=== PATIENT | male | born 1985 | race Two or more races ===

== ENCOUNTER 2019-01-19 09:14 | Inpatient (IN) | payer SELFPAY ==
[~2019-01-19] VITALS: Ht 165.1 cm; Wt 64.9 kg
[2019-01-19 09:15] VITALS: BP 128/89
--- NOTE | 2019-01-19 09:25 | Emergency Room Report ---
History of Present Illness General Chief Complaint: Abdominal Pain Source: Patient, EMS Present Illness HPI 33yo M with h/o appendectomy p/w epigastric pain after drinking alcohol, reports vomiting food and gastric contents, but denies coffee grounds or vomiting blood. He reports this pain has been going on for a very long time. He denies urinary complaints, diarrhea, rectal bleeding or dark stools. He also denies alleviating or exacerbating factors. Allergies: Coded Allergies: No Known Allergies (Unverified , 01/19/19) Patient History Past Medical History: see triage record Social History: Reports: alcohol use Reviewed Nursing Documentation: PMH: Agreed; PSxH: Agreed Nursing Documentation-PMH Past Medical History: No History, Except For Review of Systems All Other Systems: negative except mentioned in HPI Physical Exam Vital Signs Date Time Temp Pulse Resp B/P (MAP) Pulse Ox O2 Delivery O2 Flow Rate FiO2 01/19/19 09:11 97.7 74 16 139/79 99 Room Air Sp02 EP Interpretation: reviewed, normal General Appearance: no apparent distress - smells of EtOH but doesn't appear visibly intoxicated, alert, non-toxic Head: normocephalic Eyes: bilateral eye normal inspection, bilateral eye PERRL, bilateral eye EOMI ENT: normal ENT inspection, hearing grossly normal, normal pharynx, no angioedema, normal voice, moist mucus membranes Neck: normal inspection, full range of motion, supple, supple/symm/no masses Respiratory: chest non-tender, lungs clear, normal breath sounds, no rhonchi, no respiratory distress, no retraction, no accessory muscle use, no wheezing, chest symmetrical, palpation of chest normal Cardiovascular #1: normal peripheral pulses, regular rate, rhythm, no edema, no gallop, no JVD, no murmur, no rub Cardiovascular #2: 2+ radial (R), 2+ radial (L) Gastrointestinal: normal inspection, non tender, soft, no mass, no guarding, no rebound Rectal: deferred Genitourinary: normal inspection, no CVA tenderness Musculoskeletal: back normal, gait/station normal, normal range of motion, non- tender, no calf tenderness Neurologic: alert, responsive, 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 Clay, has assessed and agrees that patient is medically stable for discharge to an outpatient disposition. Diagnostic Impression: Primary Impression: Alcohol abuse Additional Impression: Pancreatitis, alcoholic, acute ER Course Patient fairly well-appearing, soft, nontender abdominal exam. Symptoms consistent with EtOH induced pancreatitis, with elevated LFT's, lipase, but normal EtOH, although per history patient was drinking prior to symptoms starting last night. He was given IVF 3L NSS, IV analgesics, will be admitted to Med Surgery. Rhythm Strip Diag. Results Rhythm Strip Time: 09:24 EP Interpretation: yes Rate: 68 Rhythm: NSR, no PVC's, no ectopy Last Vital Signs Date Time Temp Pulse Resp B/P (MAP) Pulse Ox O2 Delivery O2 Flow Rate FiO2 01/19/19 09:11 97.7 74 16 139/79 99 Room Air Disposition: ADMITTED INPATIENT Condition: Stable IDALIA CLAY M.D Jan 19, 2019 09:25
[2019-01-19 09:55] LABS: BASOPHILS % (AUTO) 1.5 % (0.0-2.0); EOSINOPHILS % (AUTO) 6.7 % (0.0-3.0); HEMATOCRIT 48.4 % (42.0-52.0); HEMOGLOBIN 16.5 G/DL (14.2-18.0); MEAN CORPUSCULAR VOLUME 93 FL (80-99); MONOCYTES % (AUTO) 4.9 % (1.0-10.0); NEUTROPHILS % (AUTO) 69.9 % (45.0-75.0); PLATELET COUNT 221 K/UL (150-450); RED BLOOD COUNT 5.21 M/UL (4.70-6.10); RED CELL DISTRIBUTION WIDTH 11.9 % (11.6-14.8); WHITE BLOOD COUNT 5.3 K/UL (4.8-10.8)
[2019-01-19 09:56] LABS: APPEARANCE,URINE CLEAR; BILIRUBIN, URINE 1+ (NEGATIVE); GLUCOSE, URINE (UA) NEGATIVE (NEGATIVE); KETONES,URINE NEGATIVE (NEGATIVE); LEUKOCYTE ESTERASE ,URINE 1+ (NEGATIVE); NITRITE,URINE NEGATIVE (NEGATIVE); PH,URINE 8 (4.5-8.0); PROTEIN,URINE 2+ (NEGATIVE); UROBILINOGEN,URINE 4 MG/DL (0.0-1.0)
[2019-01-19 10:06] LABS: COLOR,URINE YELLOW
[2019-01-19 10:15] LABS: ANION GAP 9 mmol/L (5-15); BLOOD UREA NITROGEN 7 mg/dL (7-18); CALCIUM 8.8 MG/DL (8.5-10.1); CARBON DIOXIDE 26 MMOL/L (21-32); CHLORIDE 100 MMOL/L (98-107); CREATININE 0.7 MG/DL (0.55-1.30); POTASSIUM 3.7 MMOL/L (3.5-5.1); SODIUM 135 MMOL/L (136-145)
[2019-01-19 10:25] LABS: ALANINE AMINOTRANSFERASE 311 U/L (12-78); ALBUMIN 3.9 G/DL (3.4-5.0); ALKALINE PHOSPHATASE 148 U/L (46-116); ASPARTATE AMINO TRANSFERASE 293 U/L (15-37); BILIRUBIN,DIRECT 0.8 MG/DL (0.0-0.3); BILIRUBIN,TOTAL 1.7 MG/DL (0.2-1.0)
[2019-01-19 10:39] VITALS: BP 132/86
[2019-01-19] MEDS ORDERED: Morphine Sulfate 4mg/ml Inj (IV USE ONLY) IVP ONE (11:30)
[2019-01-19 12:33] VITALS: BP 125/76
--- NOTE | 2019-01-19 13:33 | Diagnostic Imaging Report ---
Indication: Abdominal pain Technique: Beckwith-scale and duplex images of the upper abdomen were obtained Comparison: none Findings: Gallbladder is unremarkable, without stones, wall thickening, nor pericholecystic fluid. Sonographic Noguera's sign is negative. Common bile duct measures 2 mm in diameter. No intrahepatic biliary ductal dilatation. Liver demonstrates diffusely increased echogenicity, consistent with diffuse hepatocellular disease, most likely fatty change no focal abnormality. It is somewhat enlarged. Portal vein and hepatic veins are patent. Pancreas is unremarkable. Spleen is unremarkable. Left kidney measures 11.2 cm in length. Right kidney measures 10 point cm length. Both kidneys demonstrate normal echogenicity. There is no hydronephrosis. Echogenic focus is seen in the midportion of the left kidney, measuring 5 mm diameter . Abdominal aorta is partially obscured by bowel gas, visualized portions are non-aneurysmal . Impression: Somewhat enlarged liver. Increased echogenicity is consistent with hepatocellular disease, likely fatty change Negative for gallstones or dilated bile ducts Possible nonobstructive left renal interpolar region calyceal calculus Note incomplete visualization of portions of the abdominal aorta
[2019-01-19] MEDS: D5 1/2NS 1,000 ML IV SCH ×2 (13:40→20:48)
[2019-01-19] MEDS ORDERED: Metoclopramide 10mg/2ml Inj IVP PRN (13:45)
[2019-01-19] MEDS ORDERED: Miralax 17gm pkt ORAL PRN (13:45)
[2019-01-19] MEDS ORDERED: Promethazine HCl 25 MG in NS 55 ML IV PRN (13:45)
[2019-01-19] MEDS ORDERED: Nitroglycerin Subl 0.4mg tab SL PRN (13:45)
[2019-01-19] MEDS ORDERED: LORazepam Inj 2mg/ml 1ml IV PRN (13:45)
[2019-01-19] MEDS ORDERED: Promethazine HCl 12.5 MG in NS 55 ML IV PRN (13:45)
[2019-01-19] MEDS ORDERED: Morphine Sulfate 2mg/ml Inj(IV/IM USE ONLY) IVP PRN (13:45)
[2019-01-19] MEDS ORDERED: Mylanta II UD 30ml ORAL PRN (13:45)
[2019-01-19] MEDS ORDERED: NKM (15:08)
--- NOTE | 2019-01-19 19:51 | History & Physical ---
History and Physical History & Physicial Dictated for Int Med-Dr Pabon no. [id number]. Steven Yoo MD Jan 19, 2019 19:51
[2019-01-19 20:00] VITALS: BP 132/91
[2019-01-19] MEDS: Heparin 5000 units/ml inj SUBQ SCH (20:48)
--- NOTE | 2019-01-19 22:00 | History and Physical Report ---
DATE OF ADMISSION: 01/19/2019 CHIEF COMPLAINT: The patient is a 33-year-old male, who presents with chief complaint of epigastric pain, nausea, and syncope. HISTORY OF PRESENT ILLNESS: The patient has a history of binge drinking. The patient states he was bingeing approximately four or five days ago. The patient states he passed out. The patient then began to experience epigastric pain. The patient also had nausea. The patient was unable to eat. The patient presented to [facility]. The patient was found to have elevated lipase. The patient is admitted for pancreatitis. REVIEW OF SYSTEMS: CONSTITUTIONAL: The patient denies weight loss or weight gain. The patient denies fevers or chills. HEENT: The patient denies ear or throat pain. The patient denies headache. CARDIOVASCULAR: The patient denies palpitations or chest pain. CHEST: The patient denies wheeze or shortness of breath. ABDOMEN: The patient complains of epigastric pain as above. The patient complains of nausea. The patient complains of anorexia. NEUROMUSCULAR: The patient denies seizures or generalized weakness. The patient complains of syncopal episode, which may be secondary to alcohol as above. PAST MEDICAL HISTORY: The patient denies. PAST SURGICAL HISTORY: Significant for appendectomy in 2017. CURRENT MEDICATIONS: The patient denies. ALLERGIES: No known drug allergies. SOCIAL HISTORY: The patient is and works in construction. The patient denies tobacco use. The patient admits to alcohol use as above. PHYSICAL EXAMINATION: VITAL SIGNS: Temperature 97.7, respirations 16, pulse 74, and blood pressure 139/79. GENERAL: The patient is a well-developed and well-nourished male, in no apparent distress. HEENT: Eyes, pupils are equal and responsive to light and accommodation. Extraocular movements are intact. NECK: Supple without lymphadenopathy. CHEST: Lungs are clear to auscultation bilaterally without wheezes or rales. CARDIOVASCULAR: Regular rhythm and rate. S1 and S2 normal without murmurs, rubs, or gallops. ABDOMEN: Soft, tender to palpation in the epigastric region. No rebound or guarding noted. EXTREMITIES: Negative for clubbing, cyanosis, or edema. RECTAL/GENITAL: Refused. NEUROLOGIC: Cranial nerves II through XII are grossly intact without focal deficits. Motor strength is 5/5 bilaterally. Deep tendon reflexes are 2+ plantar. LABORATORY STUDIES: WBC 5.3, hemoglobin 16.5, hematocrit 48.4, and platelets . Sodium 135, potassium 3.7, chloride 100, CO2 26, BUN 7, and creatinine 0.7. Glucose 85. Total bilirubin elevated at 1.7, direct bilirubin elevated at 0.8. AST elevated at 293, ALT elevated at 311, and alkaline phosphatase elevated at 148. Lipase elevated at 80. An abdominal ultrasound revealed enlarged liver consistent with fatty change of liver. ASSESSMENT: This is a 33-year-old male with: 1. Alcoholic pancreatitis. 2. Epigastric pain. 3. Alcohol dependence. 4. Elevated liver function tests. TREATMENT: 1. Pancreatitis/epigastric pain. A Gastroenterology consultation has been obtained with Dr. Lambert Navarrete. The patient is currently NPO. The patient will be started on a clear liquid diet when he is able to tolerate it. 2. Alcohol dependence/withdrawal. The patient is currently not experiencing withdrawal symptoms. 3. Elevated liver function tests, maybe secondary to chronic alcohol ingestion. Steven Yoo M.D. DR: RORY JOB#: [id number] CC:
[2019-01-20] VITALS: BP 158/94
[2019-01-20 04:00] VITALS: BP 139/86
[2019-01-20 06:34] LABS: BASOPHILS % (AUTO) 1.5 % (0.0-2.0); EOSINOPHILS % (AUTO) 8.6 % (0.0-3.0); HEMATOCRIT 45.2 % (42.0-52.0); HEMOGLOBIN 15.6 G/DL (14.2-18.0); LYMPHOCYTES % (AUTO) 21.4 % (20.0-45.0); MEAN CORPUSCULAR VOLUME 93 FL (80-99); MONOCYTES % (AUTO) 4.8 % (1.0-10.0); NEUTROPHILS % (AUTO) 63.7 % (45.0-75.0); PLATELET COUNT 186 K/UL (150-450); RED BLOOD COUNT 4.85 M/UL (4.70-6.10); WHITE BLOOD COUNT 5.3 K/UL (4.8-10.8)
[2019-01-20 07:23] LABS: ALANINE AMINOTRANSFERASE 337 U/L (12-78); ALBUMIN 3.6 G/DL (3.4-5.0); ALKALINE PHOSPHATASE 124 U/L (46-116); AMYLASE 108 U/L (25-115); ANION GAP 10 mmol/L (5-15); ASPARTATE AMINO TRANSFERASE 356 U/L (15-37); BILIRUBIN,TOTAL 1.7 MG/DL (0.2-1.0); BLOOD UREA NITROGEN 7 mg/dL (7-18); CALCIUM 8.9 MG/DL (8.5-10.1); CARBON DIOXIDE 28 MMOL/L (21-32); CHLORIDE 100 MMOL/L (98-107); CREATININE 0.6 MG/DL (0.55-1.30); POTASSIUM 3.5 MMOL/L (3.5-5.1); SODIUM 137 MMOL/L (136-145)
[2019-01-20 07:45] LABS: BILIRUBIN,DIRECT 0.7 MG/DL (0.0-0.3)
[2019-01-20 08:00] VITALS: BP 131/80
[2019-01-20] MEDS: Heparin 5000 units/ml inj SUBQ SCH (08:34)
[2019-01-20] MEDS ORDERED: Pantoprazole Inj IV SCH (09:00)
[2019-01-20] MEDS: D5 1/2NS 1,000 ML IV SCH (10:17)
--- NOTE | 2019-01-20 10:55 | GI Initial Consult Note ---
History of Present Illness General Date patient seen: Jan 20, 2019 Time patient seen: 10:50 Reason for Hospitalization: Abdominal Pain Referring physician: СВЕТЛАНА LIN Reason for Consultation: Alcoholic pancreatitis Present Illness HPI 33yo M with h/o appendectomy p/w epigastric pain after drinking alcohol, reports vomiting food and gastric contents, but denies coffee grounds or vomiting blood. He reports this pain has been going on for a very long time. He denies urinary complaints, diarrhea, rectal bleeding or dark stools. He also denies alleviating or exacerbating factors. GI consulted for alcoholic pancreatitis. Patient seen, awake alert oriented x4 with no apparent distress, no active signs or symptoms of nausea or vomiting. The patient states that his pain has improved. Patient admits to drinking approximately 1 bottle of vodka per day for the past 3 days. Denies any hematemesis or coffee-ground. He denies any past medical history. Abdominal ultrasound shows patient has a fatty liver. Labs reviewed; no leukocytosis, no anemia, elevated LFTs and elevated lipase of 749. No history of endoscopic colonoscopy. Home Meds Reported Medications No Known Medications* (NKM - No Known Medications*) ., 0 ., 0 Refills 01/19/19 Med list reviewed/reconciled: Yes Allergies: Coded Allergies: No Known Allergies (Unverified , 01/19/19) Patient History History Provided By: Patient, Medical Record PMH Narrative Past Medical History: see triage record Social History: Reports: alcohol use Reviewed Nursing Documentation: PMH: Agreed; PSxH: Agreed Nursing Documentation-PMH Past Medical History: No History, Except For Social History: Reports: alcohol use Review of Systems All Other Systems: negative except mentioned in HPI Physical Exam Vital Signs Date Time Temp Pulse Resp B/P (MAP) Pulse Ox O2 Delivery O2 Flow Rate FiO2 01/19/19 09:11 97.7 74 16 139/79 99 Room Air Sp02 EP Interpretation: reviewed, normal Labs Laboratory Tests Test 01/20/19 05:45 White Blood Count 5.3 K/UL (4.8-10.8) Red Blood Count 4.85 M/UL (4.70-6.10) Hemoglobin 15.6 G/DL (14.2-18.0) Hematocrit 45.2 % (42.0-52.0) Mean Corpuscular Volume 93 FL (80-99) Mean Corpuscular Hemoglobin 32.2 PG (27.0-31.0) H Mean Corpuscular Hemoglobin Concent 34.5 G/DL (32.0-36.0) Red Cell Distribution Width 12.0 % (11.6-14.8) Platelet Count 186 K/UL (150-450) Mean Platelet Volume 6.4 FL (6.5-10.1) L Neutrophils (%) (Auto) 63.7 % (45.0-75.0) Lymphocytes (%) (Auto) 21.4 % (20.0-45.0) Monocytes (%) (Auto) 4.8 % (1.0-10.0) Eosinophils (%) (Auto) 8.6 % (0.0-3.0) H Basophils (%) (Auto) 1.5 % (0.0-2.0) Activated Partial Thromboplast Time 30 SEC (23-33) Sodium Level 137 MMOL/L (136-145) Potassium Level 3.5 MMOL/L (3.5-5.1) Chloride Level 100 MMOL/L (98-107) Carbon Dioxide Level 28 MMOL/L (21-32) Anion Gap 10 mmol/L (5-15) Blood Urea Nitrogen 7 mg/dL (7-18) Creatinine 0.6 MG/DL (0.55-1.30) Estimat Glomerular Filtration Rate > 60 mL/min (>60) Glucose Level 86 MG/DL (74-106) Calcium Level 8.9 MG/DL (8.5-10.1) Total Bilirubin 1.7 MG/DL (0.2-1.0) H Direct Bilirubin 0.7 MG/DL (0.0-0.3) H Aspartate Amino Transf (AST/SGOT) 356 U/L (15-37) H Alanine Aminotransferase (ALT/SGPT) 337 U/L (12-78) H Alkaline Phosphatase 124 U/L (46-116) H Total Protein 7.1 G/DL (6.4-8.2) Albumin 3.6 G/DL (3.4-5.0) Globulin 3.5 g/dL Albumin/Globulin Ratio 1.0 (1.0-2.7) Amylase Level 108 U/L (25-115) Lipase 749 U/L (73-393) H General Appearance: well appearing, no apparent distress, alert Head: normocephalic EENT: PERRL/EOMI, normal ENT inspection Neck: supple Respiratory: normal breath sounds, no respiratory distress Cardiovascular: normal rate Gastrointestinal: normal inspection, non tender, soft, normal bowel sounds, non -distended Rectal: deferred Genitourinary: deferred Musculoskeletal: normal inspection, back normal Neurologic: normal inspection, alert, oriented x3, responsive Psychiatric: normal inspection, judgement/insight normal, memory normal Skin: normal inspection, normal color, no rash, warm/dry, palpation normal, well hydrated Lymphatic: normal inspection, no adenopathy Current Medications Current Medications Medications (Trade) Dose Ordered Sig/Juan Route PRN Reason Start Time Stop Time Status Last Admin Dose Admin Acetaminophen (Tylenol) 650 mg Q4H PRN ORAL fever 01/19/19 13:45 02/18/19 13:44 Al Hydroxide/Mg Hydroxide (Mylanta II) 30 ml Q6H PRN ORAL dyspepsia 01/19/19 13:45 02/18/19 13:44 Dextrose (Dextrose 50%) 25 ml Q30M PRN IV Hypoglycemia 01/19/19 13:45 02/18/19 13:44 Dextrose (Dextrose 50%) 50 ml Q30M PRN IV Hypoglycemia 01/19/19 13:45 02/18/19 13:44 Dextrose/Sodium Chloride 1,000 ml @ 75 mls/hr [id number] IV 01/19/19 13:40 02/18/19 13:39 01/20/19 10:17 Diphenhydramine HCl (Benadryl) 25 mg Q6H PRN ORAL Itching/Pruritis 01/19/19 13:45 02/18/19 13:44 Heparin Sodium (Porcine) (Heparin 5000 units/ml) 5,000 units EVERY 12 HOURS SUBQ 01/19/19 21:00 02/18/19 20:59 01/19/19 20:48 Lorazepam (Ativan 2mg/ml 1ml) 1 mg Q4H PRN IV agitation 01/19/19 13:45 01/26/19 13:44 Metoclopramide HCl (Reglan) 10 mg Q6H PRN IVP servere nauasea 01/19/19 13:45 02/18/19 13:44 Morphine Sulfate (Morphine Sulfate) 2 mg Q4H PRN IVP severe Pain (Pain Scale 7-10) 01/19/19 13:45 01/26/19 13:44 01/20/19 08:41 Nitroglycerin (Ntg) 0.4 mg Q5M X 3 DOSES PRN SL Prn Chest Pain 01/19/19 13:45 02/18/19 13:44 Ondansetron HCl (Zofran) 4 mg Q6H PRN IVP Nausea & Vomiting 01/19/19 13:45 02/18/19 13:44 Pantoprazole (Protonix) 40 mg DAILY IV 01/20/19 09:00 02/19/19 08:59 01/20/19 08:34 Polyethylene Glycol (Miralax) 17 gm HSPRN PRN ORAL Constipation 01/19/19 13:45 02/18/19 13:44 Promethazine HCl (Phenergan) 25 mg Q6H PRN IM REFRACTORY N/V 01/19/19 14:15 02/18/19 14:14 Temazepam (Restoril) 15 mg HSPRN PRN ORAL Insomnia 01/19/19 13:45 01/26/19 13:44 GI: Plan Problems: (1) Pancreatitis, alcoholic, acute (2) Alcohol abuse (3) Pancreatitis (4) Fatty liver Plan Symptomatic treatment Clear liquid diet trial, advance as tolerated Maintain IV hydration Pain management zofran prn ppi Extensive discussion about alcohol cessation Trend LFTs and lipase Discussed with Dr. Navarrete. Thank you for this patient referral, we will follow. The patient was seen and examined at bedside and all new and available data was reviewed in the patients chart. I agree with the above findings, impression and plan. (Patient seen earlier today. Signature stamp does not reflect patient encounter time.). - MD Petrona Rader,[employer] Jan 20, 2019 10:55
[2019-01-20 12:00] VITALS: BP 122/78
[2019-01-20 16:00] VITALS: BP 139/80
--- NOTE | 2019-01-20 16:56 | Discharge Summary ---
Discharge Summary Hospital Course Date of Admission Jan 19, 2019 at 12:20 Date of Discharge Admitting Diagnosis pancreatitis HPI Vikas Urbina is a 33 year old male who was admitted on Jan 19, 2019 at 12:20 for Pancreatitis Hospital Course Job @ [id number] Discharge Discharge Disposition Patient was discharged to Orville Pabon MD Jan 20, 2019 16:56
[2019-01-20] MEDS ORDERED: D5 1/2NS 1000ml IV ONE (19:05)
[2019-01-20 20:00] VITALS: BP 140/84
--- NOTE | 2019-01-20 22:15 | Discharge Summary ---
DATE OF ADMISSION: 01/19/2019 DATE OF DISCHARGE: 01/20/2019 BRIEF HISTORY AND HOSPITAL COURSE: This is a 33-year-old gentleman, denies any past medical history. Past surgical history significant for appendectomy in 2017, who was presented to the hospital complaining about epigastric pain, nausea, and syncope. Shortly after initial evaluation, the patient was admitted to the hospital with epigastric pain, most likely secondary to acute alcoholic pancreatitis with alcohol dependency as well as abnormal liver function, most likely secondary to alcoholic hepatitis. Throughout the hospital course, the patient was followed by Dr. Navarrete from Gastroenterology and had an ultrasound of the abdomen done, which noted the patient has somewhat enlarged liver with increased echogenicity with hepatocellular disease, likely fatty changes. Throughout the hospital course, the patient's status improved. He was able to tolerate oral intake and subsequently the patient was discharged home today to be followed up in my office within one week. I advised the patient to avoid drinking alcohol. I advised the patient if he started drinking alcohol, he probably is going to have recurrent pancreatitis or worsening of pancreatitis, and possible . He stated that he understood that. I advised the patient to follow up in my office within one week. Telephone number was provided and I advised him to contact my office to be followed up. FINAL DIAGNOSES: 1. Alcoholic pancreatitis. 2. Alcoholic hepatitis. 3. Alcohol dependency. MEDICATIONS ON DISCHARGE: Continue discharge medication . ACTIVITY: As tolerated. DIET: Regular diet as tolerated. Orville Pabon M.D. DR: PIERO JOB#: [id number] CC:
== END 2019-01-20 21:55 | disposition home or self-care (01) | DRG 440 ==
LOC: EDBD 09:14 → EMR 09:30 → 3E 12:20 → EDBEDREQ 13:26
DX: K85.20 Alcohol induced acute pancreatitis without necrosis or infection (principal); K70.10 Alcoholic hepatitis without ascites; F10.20 Alcohol dependence, uncomplicated; K70.0 Alcoholic fatty liver
CPT/HCPCS: 36415; 76700; 80053; 80329; 81003; 82150; 82248; 83690; 85025; 85730; 96361; 96374; 96375; 99285; J2405

== ENCOUNTER 2020-01-18 21:04 | Emergency (ER) | payer MEDICAID ==
[~2020-01-18] VITALS: Ht 167.6 cm; Wt 68.0 kg
[~2020-01-18 21:04] MED LIST: NKM
--- NOTE | 2020-01-18 21:15 | NUR ---
ED Nurse Note: PT BIBA RA 826 C/O ABD PAIN 12/08. PT APPEARS ETOH, VSS, NAD, ERMD AT BEDSIDE. WILL CONTINUE TO MONITOR PATIENT
[2020-01-18 21:36] VITALS: BP 138/79
--- NOTE | 2020-01-18 22:10 | NUR ---
ED Nurse Note: pt ambulated to bathroom
--- NOTE | 2020-01-18 22:18 | Emergency Room Report ---
History of Present Illness General Chief Complaint: Abdominal Pain Source: Patient Present Illness HPI Patient is a 34-year-old male brought in by EMS after increased epigastric pain. Patient reports having a recent heavy alcohol intake. Denies any fever. Reports having some episodes of vomiting. Patient denies any current complaints. He states pain had resolved. History is limited by poor historian Allergies: Coded Allergies: No Known Allergies (Unverified , 01/19/19) Patient History Past Medical History: see triage record Reviewed Nursing Documentation: PMH: Agreed; PSxH: Agreed Nursing Documentation-PM Past Medical History: No Stated History Hx Gastrointestinal Problems: Yes - nausea / vomiting Hx Neurological Problems: No Review of Systems All Other Systems: limited Physical Exam Vital Signs Date Time Temp Pulse Resp B/P (MAP) Pulse Ox O2 Delivery O2 Flow Rate FiO2 01/18/20 21:10 98.2 100 18 144/82 (102) 96 Room Air General Appearance: well appearing, alert, GCS 15, non-toxic, Chronically Ill Head: normocephalic, atraumatic ENT: hearing grossly normal, normal voice Neck: full range of motion, supple Respiratory: lungs clear, no respiratory distress, speaking full sentences Cardiovascular #1: normal inspection Gastrointestinal: normal inspection Musculoskeletal: normal inspection Neurologic: motor strength/tone normal, personal trainer III-XII nml as tested, oriented x3 , normal gait, other - Slurred speech Psychiatric: mood/affect normal Skin: no rash Medical Decision Making Diagnostic Impression: Primary Impression: Gastritis Additional Impressions: Fatty liver Alcohol abuse ER Course Patient presented for abdominal pain. Differential diagnosis include was not limited to alcohol intoxication, gastritis, among others. Because of complexity of patient's case laboratory tests were ordered. Patient appears to be intoxicated alcohol currently. Patient was given medications for symptomatic treatment. Patient was able to ambulate with a steady gait.Patient was given medications for pain. He was given IV fluids. patient appears to be stable for outpatient management. Laboratory testing not show any evidence of acute pancreatitis as previous liver function tests appear to be somewhat elevated however this is improved from previous visits. The patient is advised to follow up with primary care doctor in 1-2 days. Patient is advised to return if any worsening condition or if any changes in status that are concerning. This report is dictated with [employer] finisher cold rolling software which may occasionally lead to discrepancies related to use of this software. Labs Test 01/18/20 22:50 White Blood Count 8.0 K/UL (4.8-10.8) Red Blood Count 5.04 M/UL (4.70-6.10) Hemoglobin 15.5 G/DL (14.2-18.0) Hematocrit 46.0 % (42.0-52.0) Mean Corpuscular Volume 91 FL (80-99) Mean Corpuscular Hemoglobin 30.7 PG (27.0-31.0) Mean Corpuscular Hemoglobin Concent 33.7 G/DL (32.0-36.0) Red Cell Distribution Width 13.2 % (11.6-14.8) Platelet Count 471 K/UL (150-450) Mean Platelet Volume 5.0 FL (6.5-10.1) Neutrophils (%) (Auto) 72.6 % (45.0-75.0) Lymphocytes (%) (Auto) 20.1 % (20.0-45.0) Monocytes (%) (Auto) 6.0 % (1.0-10.0) Eosinophils (%) (Auto) 0.0 % (0.0-3.0) Basophils (%) (Auto) 1.3 % (0.0-2.0) Sodium Level 144 MMOL/L (136-145) Potassium Level 3.7 MMOL/L (3.5-5.1) Chloride Level 103 MMOL/L (98-107) Carbon Dioxide Level 24 MMOL/L (21-32) Anion Gap 17 mmol/L (5-15) Blood Urea Nitrogen 6 mg/dL (7-18) Creatinine 0.7 MG/DL (0.55-1.30) Estimat Glomerular Filtration Rate > 60 mL/min (>60) Glucose Level 125 MG/DL (74-106) Calcium Level 9.2 MG/DL (8.5-10.1) Total Bilirubin 0.4 MG/DL (0.2-1.0) Aspartate Amino Transf (AST/SGOT) 136 U/L (15-37) Alanine Aminotransferase (ALT/SGPT) 142 U/L (12-78) Alkaline Phosphatase 123 U/L (46-116) Total Protein 8.4 G/DL (6.4-8.2) Albumin 4.2 G/DL (3.4-5.0) Globulin 4.2 g/dL Albumin/Globulin Ratio 1.0 (1.0-2.7) Lipase 302 U/L (73-393) Last Vital Signs Date Time Temp Pulse Resp B/P (MAP) Pulse Ox O2 Delivery O2 Flow Rate FiO2 01/18/20 21:36 89 18 Room Air 01/18/20 21:36 98.3 138/79 98 Status: improved Disposition: HOME, SELF-CARE Condition: Stable Scripts Famotidine* (Pepcid 20mg tablet*) 20 Mg Tablet 20 MG ORAL TWICE A DAY, #60 TAB 0 Refills Prov: Dennis Jarrett MD 01/19/20 Dennis Jarrett MD Jan 18, 2020 22:18
[2020-01-18] MEDS ORDERED: Morphine Sulfate 4mg/ml Inj (IV USE ONLY) IVP ONE (22:45)
--- NOTE | 2020-01-18 22:45 | NUR ---
ED Nurse Note: PT C/O NEW ONSET ABD PAIN. ERMD NOTIFIED. WILL CARRY OUT ORDER
[2020-01-18 23:03] LABS: BASOPHILS % (AUTO) 1.3 % (0.0-2.0); HEMOGLOBIN 15.5 G/DL (14.2-18.0); LYMPHOCYTES % (AUTO) 20.1 % (20.0-45.0); MEAN CORPUSCULAR VOLUME 91 FL (80-99); NEUTROPHILS % (AUTO) 72.6 % (45.0-75.0); PLATELET COUNT 471 K/UL (150-450); RED BLOOD COUNT 5.04 M/UL (4.70-6.10); RED CELL DISTRIBUTION WIDTH 13.2 % (11.6-14.8)
[2020-01-18 23:14] LABS: ANION GAP 17 mmol/L (5-15); BLOOD UREA NITROGEN 6 mg/dL (7-18); CALCIUM 9.2 MG/DL (8.5-10.1); CARBON DIOXIDE 24 MMOL/L (21-32); CHLORIDE 103 MMOL/L (98-107); CREATININE 0.7 MG/DL (0.55-1.30); POTASSIUM 3.7 MMOL/L (3.5-5.1); SODIUM 144 MMOL/L (136-145)
[2020-01-18 23:18] LABS: ALANINE AMINOTRANSFERASE 142 U/L (12-78); ALBUMIN 4.2 G/DL (3.4-5.0); ALKALINE PHOSPHATASE 123 U/L (46-116); ASPARTATE AMINO TRANSFERASE 136 U/L (15-37); BILIRUBIN,TOTAL 0.4 MG/DL (0.2-1.0)
[2020-01-19] MEDS ORDERED: FAMOTIDINE20 MG ORAL (00:18)
[2020-01-19 01:15] VITALS: BP 132/65
--- NOTE | 2020-01-19 01:15 | NUR ---
ER DISCHARGE NOTE: Patient is cleared to be discharged per ERMD, pt is aox4, on room air, with stable vital signs. pt was given dc and prescription instructions, pt was able to verbalize understanding, pt id band removed without complications. pt is able to ambulate with steady gait. pt took all belongings.
== END 2020-01-19 01:15 | disposition home or self-care (01) ==
LOC: EDUNIT# 21:04 → EDBD 21:04 → EMR 22:23
DX: K29.70 Gastritis, unspecified, without bleeding (principal); K76.0 Fatty (change of) liver, not elsewhere classified; F10.10 Alcohol abuse, uncomplicated; Y90.9 Presence of alcohol in blood, level not specified
CPT/HCPCS: 36415; 80053; 83690; 85025; 96361; 96374; J2270; J7030; Z7502; 99284